=== PATIENT | male | born 1960 | race Caucasian/White ===

== ENCOUNTER 2022-05-19 20:51 | Inpatient (IN) | payer OTHER ==
[2022-05-19] MEDS ORDERED: ALBUTEROL SO4 2.5/IPRATROPIUM 0.5 INH SOL 3 ML VIAL.NEB. NEB ONE (21:06)
[2022-05-19] MEDS ORDERED: DEXAMETHASONE SOD PHOSPHATE 10 MG/1 ML VIAL IVPUSH ONE (21:06)
[2022-05-19] MEDS ORDERED: LACTATED RINGERS SOLUTION 1000 ML INFUS.BAG IV ONE (21:08)
[2022-05-19] MEDS ORDERED: methylPREDNISolone NA SUCC 125 MG/2 ML VIAL ONE (21:11)
[2022-05-19] MEDS ORDERED: methylPREDNISolone NA SUCC 125 MG/2 ML VIAL IVPUSH ONE (21:25)
[2022-05-19] MEDS ORDERED: VANCOMYCIN 1 GM in D5W (PRE-DOCKED) 1,000 MG/250 ML IVPB ONE (21:38)
[2022-05-19] MEDS ORDERED: ACETAMINOPHEN 1000 MG/100 ML BAG IVPB ONE (21:38)
[2022-05-19] MEDS ORDERED: PIPERACILLIN/TAZOB 4.5 GM 4.5 GM in DEXTROSE 5%-WATER 100 ML IVPB ONE (21:40)
[2022-05-19 21:54] LABS: HEMATOCRIT 35.6 % (35.4-49); HEMOGLOBIN 11.2 GM/dL (11.7-16.9); INR 0.93 (0.83-1.09); MCH 30.9 pg (25.7-33.7); MCHC 31.4 g/dl (32.0-35.9); MEAN CELL VOLUME 98.5 fl (80-96); MEAN PLT VOLUME 9.7 fl (7.5-11.1); PLATELET COUNT 142 10^3/uL (134-434); PROTHROMBIN TIME (PATIENT) 10.8 SEC (9.7-13.0); RBC 3.61 M/mm3 (4.00-5.60); RDW 19.6 % (11.9-15.9)
[2022-05-19] MEDS ORDERED: ACETAMINOPHEN INJECTION 100 ML IVPB ONE (22:01)
[2022-05-19] MEDS ORDERED: VANCOMYCIN/WATER FOR INJ (PEG) 1,000 MG/200 ML BAG IVPB ONE (22:02)
[2022-05-19] MEDS ORDERED: PIPERACILLIN/TAZOB 4.5 GM 4.5 GM/100 ML BAG IVPB ONE (22:02)
[2022-05-19 22:06] LABS: CALCIUM 9.2 mg/dL (8.5-10.1)
[2022-05-19 22:07] LABS: ALBUMIN 2.8 g/dl (3.4-5.0)
[2022-05-19 22:10] LABS: CREATININE 1.1 mg/dL (0.55-1.3); PHOSPHOROUS 3.4 mg/dL (2.5-4.9)
[2022-05-19 22:11] LABS: BILIRUBIN,TOTAL 0.5 mg/dL (0.2-1); TOT PROT 6.4 g/dl (6.4-8.2)
[2022-05-19 22:20] LABS: ARTERIAL BLD GAS O2 SATURATION 95.5 % (95-98); ARTERIAL BLOOD GAS BASE EXCESS -0.1 mmol/L (-2-2); ARTERIAL BLOOD GAS PO2 90.3 mmHg (80-100); ARTERIAL BLOOD GAS pH 7.263 (7.350-7.450)
[2022-05-19 22:23] LABS: ALLENS TEST POSITIVE
[2022-05-19 22:24] LABS: VENT MODE S/T; VENT RATE 20
[2022-05-19 22:25] LABS: ANISOCYTOSIS 2+; MACROCYTOSIS 0; OVALOCYTE 1+
[2022-05-19 23:11] LABS: ACTIVATED PTT 16.6 SECONDS (25.2-36.5)
[2022-05-19 23:34] LABS: CALCIUM 7.9 mg/dL (8.5-10.1); MAGNESIUM 1.3 mg/dL (1.8-2.4)
[2022-05-19 23:35] LABS: BLOOD UREA NITROGEN 37.9 mg/dL (7-18)
[2022-05-19 23:38] LABS: CREATININE 1.4 mg/dL (0.55-1.3)
[2022-05-20] MEDS ORDERED: MAGNESIUM SULF 50% (8.12 MEQ/2 ML-1 GM VIAL) IVPB ONE ×2 (01:38→02:13)
[2022-05-20 01:52] LABS: ARTERIAL BLD GAS O2 SATURATION 99.1 % (95-98); ARTERIAL BLOOD GAS BASE EXCESS -0.6 mmol/L (-2-2); ARTERIAL BLOOD GAS PO2 192.9 mmHg (80-100)
[2022-05-20] MEDS ORDERED: MAGNESIUM SULFATE IN WATER 2 GM/50 ML IVPB IVPB ONE (02:07)
[2022-05-20] MEDS ORDERED: LACTATED RINGERS SOLUTION 1000 ML INFUS.BAG IV ONE ×2 (02:21→10:43)
[2022-05-20] MEDS ORDERED: NOREPINEPHRINE BITARTRATE 4 MG/4 ML ML IV ONE ×2 (03:06→03:15)
[2022-05-20] MEDS ORDERED: NOREPINEPHRINE 0.9 % NACL 8 MG/250 ML BAG IVPB SCH (03:15)
[2022-05-20] MEDS: NOREPINEPHRINE BITARTRATE 16,000 MCG in SODIUM CHLORIDE 484 ML IV SCH ×2 (03:26→13:54)
[2022-05-20 05:11] LABS: EPI CELLS 8 /uL (0-25.1); HYALINE CASTS 4 /uL (0-3.1); URINE APPEARANCE Turbid; URINE BACTERIA 138 /uL (0-1359); URINE BILIRUBIN 2+ (NEGATIVE); URINE COLOR Red; URINE GLUCOSE (UA) Negative (NEGATIVE); URINE KETONE Negative (NEGATIVE); URINE LEUK ESTERASE Moderate (NEGATIVE); URINE NITRITE Negative (NEGATIVE); URINE PROTEIN 300 (NEGATIVE); URINE UROBILINOGEN 0.2 mg/dL (0.2-1.0); URINE WBC 1054 /uL (0-25.8)
[2022-05-20] MEDS ORDERED: ALBUTEROL SO4 0.083% IH SOL 2.5 MG/3 ML VIAL.NEB. NEB PRN (05:31)
[2022-05-20] MEDS: DEXMEDETOMIDINE PREMIX 400 MCG/100 ML BAG IVPB SCH (06:32)
[2022-05-20] MEDS: VASOPRESSIN 40 UNITS/100 ML BAG IV SCH ×2 (06:32→13:55)
[2022-05-20 08:57] LABS: URINE RBC 28254.9 /uL (0-23.9); YEAST NO SEEN (NEGATIVE)
[2022-05-20] MEDS: methylPREDNISolone NA SUCC 125 MG/2 ML VIAL IVPB SCH ×3 (09:05→21:16)
[2022-05-20] MEDS: NYSTATIN POWDER 100,000 UNITS/GM - 15 GM TOPICAL POWDER TP SCH (09:47)
[2022-05-20] MEDS ORDERED: PIPERACILLIN/TAZOB 3.375 GM 3.375 GM in DEXTROSE 5%-WATER - 50 ML IVPB SCH (10:00)
[2022-05-20] MEDS ORDERED: LINEZOLID 600 MG PREMIX BAG 600 MG/300 ML BAG IVPB SCH (10:00)
[2022-05-20 11:00] LABS: HEMATOCRIT 18.3 % (35.4-49); MCH 29.1 pg (25.7-33.7); MCHC 28.6 g/dl (32.0-35.9); MEAN CELL VOLUME 101.8 fl (80-96); MEAN PLT VOLUME 10.4 fl (7.5-11.1); PLATELET COUNT 89 10^3/uL (134-434); RDW 19.1 % (11.9-15.9)
[2022-05-20 11:07] LABS: HEMOGLOBIN 5.2 GM/dL (11.7-16.9); WHITE BLOOD COUNT 63.9 K/mm3 (4.0-10.0)
[2022-05-20] MEDS ORDERED: MIDAZOLAM HCL 2 MG/2 ML SINGLE DOSE VIAL IVPUSH ONE (11:20)
[2022-05-20 11:28] LABS: CALCIUM 7.8 mg/dL (8.5-10.1); MAGNESIUM 2.2 mg/dL (1.8-2.4)
[2022-05-20 11:30] LABS: PHOSPHOROUS 5.7 mg/dL (2.5-4.9)
[2022-05-20 11:32] LABS: LACTIC ACID 3.3 mmol/L (0.4-2.0)
[2022-05-20 12:43] LABS: HEMATOCRIT 16.9 % (35.4-49); MCH 28.7 pg (25.7-33.7); MCHC 28.5 g/dl (32.0-35.9); MEAN CELL VOLUME 100.7 fl (80-96); MEAN PLT VOLUME 10.6 fl (7.5-11.1); PLATELET COUNT 84 10^3/uL (134-434); RBC 1.67 M/mm3 (4.00-5.60); RDW 19.3 % (11.9-15.9)
[2022-05-20 12:49] LABS: HEMOGLOBIN 4.8 GM/dL (11.7-16.9); WHITE BLOOD COUNT 62.1 K/mm3 (4.0-10.0)
[2022-05-20 12:59] LABS: CHLORIDE 108 mmol/L (98-107); SODIUM 141 mmol/L (136-145)
[2022-05-20 13:00] LABS: CALCIUM 7.7 mg/dL (8.5-10.1)
[2022-05-20 13:01] LABS: CO2 30 mmol/L (21-32); GLUCOSE,RANDOM 102 mg/dL (74-106); MAGNESIUM 2.2 mg/dL (1.8-2.4)
[2022-05-20 13:04] LABS: CREATININE 1.9 mg/dL (0.55-1.3); PHOSPHOROUS 6.8 mg/dL (2.5-4.9); SGOT/AST 561 U/L (15-37); SGPT/ALT 593 U/L (13-61)
[2022-05-20 13:05] LABS: BILIRUBIN,TOTAL 0.4 mg/dL (0.2-1)
[2022-05-20 13:07] LABS: ALK PHOS 26 U/L (45-117)
[2022-05-20 13:08] LABS: ALBUMIN 1.8 g/dl (3.4-5.0); ANION GAP 3 MMOL/L (8-16)
[2022-05-20] MEDS ORDERED: INSULIN REGULAR HUMAN 100 UNITS/ML *VIAL IVPUSH ONE ×2 (13:12→21:38)
[2022-05-20] MEDS ORDERED: DEXTROSE 50%-WATER - 25 GM/50 ML VIAL IVPUSH ONE ×2 (13:12→21:38)
[2022-05-20] MEDS ORDERED: CALCIUM GLUCONATE 10% - 1,000 MG/10 ML VIAL IVPUSH ONE (13:14)
[2022-05-20 13:15] LABS: ANISOCYTOSIS 2+; MACROCYTOSIS 1+; OVALOCYTE 1+
[2022-05-20] MEDS ORDERED: CALCIUM GLUCONATE 10% - 1,000 MG/10 ML VIAL ONE (13:29)
[2022-05-20] MEDS ORDERED: DEXTROSE 50%-WATER 25 GM/50 ML DISP.SYRIN ONE (13:30)
[2022-05-20 13:53] LABS: LACTIC ACID 2.5 mmol/L (0.4-2.0)
[2022-05-20] MEDS: ALBUTEROL SO4 2.5/IPRATROPIUM 0.5 INH SOL 3 ML VIAL.NEB. NEB SCH ×4 (14:06→23:35)
[2022-05-20] MEDS: ALBUTEROL SO4 0.083% IH SOL 2.5 MG/3 ML VIAL.NEB. NEB SCH ×2 (14:06→14:07)
[2022-05-20] MEDS: PANTOPRAZOLE SODIUM 40 MG VIAL IVPUSH SCH (14:54)
[2022-05-20] MEDS ORDERED: FENTANYL CITRATE/PF 50 MCG/ML VIAL IVPUSH ONE ×3 (16:30→21:39)
[2022-05-20] MEDS ORDERED: FENTANYL CITRATE/PF 50 MCG/ML VIAL ONE ×2 (16:37→18:21)
[2022-05-20] MEDS: PIPERACILLIN/TAZOB 3.375 GM 3.375 GM in DEXTROSE 5%-WATER - 50 ML IVPB SCH (19:02)
[2022-05-20 19:41] LABS: HEMATOCRIT 27.9 % (35.4-49); HEMOGLOBIN 8.4 GM/dL (11.7-16.9); MCH 26.9 pg (25.7-33.7); MEAN CELL VOLUME 89.6 fl (80-96); MEAN PLT VOLUME 9.6 fl (7.5-11.1); PLATELET COUNT 49 10^3/uL (134-434); RBC 3.12 M/mm3 (4.00-5.60); RDW 23.8 % (11.9-15.9)
[2022-05-20 19:46] LABS: WHITE BLOOD COUNT 55.1 K/mm3 (4.0-10.0)
[2022-05-20 19:59] LABS: CHLORIDE 108 mmol/L (98-107); SODIUM 139 mmol/L (136-145)
[2022-05-20 20:02] LABS: BLOOD UREA NITROGEN 59.6 mg/dL (7-18); CO2 27 mmol/L (21-32); GLUCOSE,RANDOM 114 mg/dL (74-106)
[2022-05-20 20:05] LABS: CREATININE 1.9 mg/dL (0.55-1.3)
[2022-05-20 20:06] LABS: ANION GAP 3 MMOL/L (8-16)
[2022-05-20 20:08] LABS: ARTERIAL BLD GAS O2 SATURATION 96.7 % (95-98); ARTERIAL BLOOD GAS BASE EXCESS -6.6 mmol/L (-2-2); ARTERIAL BLOOD GAS PO2 128.9 mmHg (80-100)
[2022-05-20 20:09] LABS: ALLENS TEST POSITIVE; VENT MODE S/T; VENT RATE 12
[2022-05-20] MEDS ORDERED: ALBUTEROL SO4 2.5/IPRATROPIUM 0.5 INH SOL 3 ML VIAL.NEB. NEB SCH (20:28)
[2022-05-20] MEDS ORDERED: SODIUM BICARBONATE 8.4% 50 MEQ/50 ML DISP.SYRIN IVPUSH ONE (21:40)
[2022-05-20] MEDS ORDERED: CALCIUM GLUCONATE 10% - 1,000 MG/10 ML VIAL IVPB ONE (21:40)
[2022-05-20] MEDS ORDERED: DEXTROSE 50%-WATER 25 GM/50 ML DISP.SYRIN IVPUSH ONE (22:00)
[2022-05-20 22:12] LABS: ARTERIAL BLD GAS O2 SATURATION 98.3 % (95-98); ARTERIAL BLOOD GAS BASE EXCESS -8.9 mmol/L (-2-2); ARTERIAL BLOOD GAS PO2 156.8 mmHg (80-100)
[2022-05-20 22:14] LABS: ALLENS TEST POSITIVE; VENT RATE 12
[2022-05-20 22:15] LABS: ARTERIAL BLOOD GAS pH 7.109 (7.350-7.450)
[2022-05-21 00:35] LABS: ARTERIAL BLD GAS O2 SATURATION 94.2 % (95-98); ARTERIAL BLOOD GAS BASE EXCESS -7.5 mmol/L (-2-2); ARTERIAL BLOOD GAS PO2 94.7 mmHg (80-100)
[2022-05-21 00:37] LABS: ALLENS TEST POSITIVE
[2022-05-21 00:38] LABS: VENT RATE 16
[2022-05-21] MEDS: PIPERACILLIN/TAZOB 3.375 GM 3.375 GM in DEXTROSE 5%-WATER - 50 ML IVPB SCH ×3 (02:11→17:00)
[2022-05-21 02:24] LABS: ARTERIAL BLD GAS O2 SATURATION 92.2 % (95-98); ARTERIAL BLOOD GAS BASE EXCESS -6.1 mmol/L (-2-2)
[2022-05-21 02:36] LABS: ALLENS TEST POSITIVE; VENT RATE 16
[2022-05-21 02:37] LABS: ARTERIAL BLOOD GAS pH 7.171 (7.350-7.450)
[2022-05-21] MEDS: methylPREDNISolone NA SUCC 125 MG/2 ML VIAL IVPB SCH ×2 (03:43→09:02)
[2022-05-21] MEDS: NOREPINEPHRINE BITARTRATE 16,000 MCG in SODIUM CHLORIDE 484 ML IV SCH (03:44)
[2022-05-21] MEDS: DEXMEDETOMIDINE PREMIX 400 MCG/100 ML BAG IVPB SCH (03:44)
[2022-05-21] MEDS: VASOPRESSIN 40 UNITS/100 ML BAG IV SCH ×2 (03:45→14:49)
[2022-05-21] MEDS: ALBUTEROL SO4 2.5/IPRATROPIUM 0.5 INH SOL 3 ML VIAL.NEB. NEB SCH ×6 (04:30→23:56)
[2022-05-21] MEDS ORDERED: METOPROLOL TARTRATE 5 MG/5 ML VIAL IVPUSH PRN (06:29)
[2022-05-21 08:06] LABS: HEMATOCRIT 23.6 % (35.4-49); HEMOGLOBIN 7.5 GM/dL (11.7-16.9); MCH 27.9 pg (25.7-33.7); MCHC 31.7 g/dl (32.0-35.9); MEAN PLT VOLUME 9.7 fl (7.5-11.1); RBC 2.68 M/mm3 (4.00-5.60)
[2022-05-21 08:09] LABS: CHLORIDE 110 mmol/L (98-107); SODIUM 142 mmol/L (136-145)
[2022-05-21 08:21] LABS: PLATELET COUNT 17 10^3/uL (134-434); WHITE BLOOD COUNT 47.6 K/mm3 (4.0-10.0)
[2022-05-21 08:48] LABS: CALCIUM 8.2 mg/dL (8.5-10.1)
[2022-05-21 08:49] LABS: BLOOD UREA NITROGEN 72.4 mg/dL (7-18); CO2 25 mmol/L (21-32); GLUCOSE,RANDOM 129 mg/dL (74-106)
[2022-05-21 08:51] LABS: SGPT/ALT 810 U/L (13-61)
[2022-05-21 08:52] LABS: CREATININE 2.3 mg/dL (0.55-1.3); PHOSPHOROUS 7.1 mg/dL (2.5-4.9); SGOT/AST 442 U/L (15-37)
[2022-05-21 08:53] LABS: TOT PROT 4.7 g/dl (6.4-8.2)
[2022-05-21 08:54] LABS: ALK PHOS 31 U/L (45-117)
[2022-05-21 08:59] LABS: ANION GAP 7 MMOL/L (8-16)
[2022-05-21] MEDS: PANTOPRAZOLE SODIUM 40 MG VIAL IVPUSH SCH (09:02)
[2022-05-21] MEDS: NYSTATIN POWDER 100,000 UNITS/GM - 15 GM TOPICAL POWDER TP SCH (09:04)
[2022-05-21] MEDS ORDERED: INSULIN REGULAR HUMAN 100 UNITS/ML *VIAL IVPUSH ONE ×2 (09:06→14:23)
[2022-05-21] MEDS ORDERED: DEXTROSE 50%-WATER - 25 GM/50 ML VIAL IVPUSH ONE ×2 (09:07→14:25)
[2022-05-21] MEDS ORDERED: CALCIUM GLUCONATE 10% - 1,000 MG/10 ML VIAL IVPUSH ONE ×2 (09:07→14:25)
[2022-05-21] MEDS ORDERED: INSULIN REGULAR HUMAN 100 UNITS/ML *VIAL ONE (09:22)
[2022-05-21] MEDS ORDERED: DEXTROSE 50%-WATER 25 GM/50 ML DISP.SYRIN ONE ×2 (09:22→14:44)
[2022-05-21] MEDS ORDERED: LINEZOLID 600 MG PREMIX BAG 600 MG/300 ML BAG IVPB SCH (10:00)
[2022-05-21] MEDS ORDERED: SODIUM ZIRCONIUM CYCLOSILICATE (LOKELMA) 5 GM PACKET PO SCH (10:30)
[2022-05-21] MEDS: SODIUM CHLORIDE 0.45% 1,000 ML IV SCH (12:03)
[2022-05-21] MEDS ORDERED: ALBUTEROL SO4 0.083% IH SOL 2.5 MG/3 ML VIAL.NEB. NEB PRN (12:16)
[2022-05-21 12:41] LABS: ARTERIAL BLD GAS O2 SATURATION 91.7 % (95-98); ARTERIAL BLOOD GAS BASE EXCESS -5.7 mmol/L (-2-2); ARTERIAL BLOOD GAS PO2 82.6 mmHg (80-100)
[2022-05-21 12:45] LABS: CHLORIDE 109 mmol/L (98-107); SODIUM 142 mmol/L (136-145)
[2022-05-21 12:46] LABS: ALLENS TEST POSITIVE
[2022-05-21 12:47] LABS: ARTERIAL BLOOD GAS pH 7.119 (7.350-7.450)
[2022-05-21 12:50] LABS: CALCIUM 8.5 mg/dL (8.5-10.1)
[2022-05-21 12:51] LABS: BLOOD UREA NITROGEN 74.3 mg/dL (7-18); CO2 26 mmol/L (21-32); GLUCOSE,RANDOM 183 mg/dL (74-106)
[2022-05-21 12:54] LABS: CREATININE 2.4 mg/dL (0.55-1.3)
[2022-05-21 13:02] LABS: ANION GAP 7 MMOL/L (8-16)
[2022-05-21] MEDS: SODIUM ZIRCONIUM CYCLOSILICATE (LOKELMA) 5 GM PACKET PO SCH ×2 (13:56→22:26)
[2022-05-21 14:51] LABS: HEMATOCRIT 21.1 % (35.4-49); MCH 26.8 pg (25.7-33.7); MCHC 30.7 g/dl (32.0-35.9); MEAN CELL VOLUME 87.4 fl (80-96); MEAN PLT VOLUME 7.8 fl (7.5-11.1); PLATELET COUNT 65 10^3/uL (134-434); RBC 2.42 M/mm3 (4.00-5.60)
[2022-05-21 14:58] LABS: HEMOGLOBIN 6.5 GM/dL (11.7-16.9); WHITE BLOOD COUNT 41.6 K/mm3 (4.0-10.0)
[2022-05-21 15:00] LABS: INR 1.17 (0.83-1.09); PROTHROMBIN TIME (PATIENT) 13.6 SEC (9.7-13.0)
[2022-05-21 15:03] LABS: ACTIVATED PTT 29.3 SECONDS (25.2-36.5)
[2022-05-21] MEDS: methylPREDNISolone NA SUCC 40 MG/1 ML VIAL IVPB SCH (17:00)
[2022-05-21 22:38] LABS: HEMATOCRIT 25.3 % (35.4-49); MCH 27.4 pg (25.7-33.7); MCHC 31.6 g/dl (32.0-35.9); MEAN CELL VOLUME 86.7 fl (80-96); MEAN PLT VOLUME 8.3 fl (7.5-11.1); PLATELET COUNT 46 10^3/uL (134-434); RBC 2.91 M/mm3 (4.00-5.60); RDW 21.4 % (11.9-15.9)
[2022-05-21 22:40] LABS: WHITE BLOOD COUNT 36.7 K/mm3 (4.0-10.0)
[2022-05-21 22:47] LABS: INR 1.07 (0.83-1.09); PROTHROMBIN TIME (PATIENT) 12.4 SEC (9.7-13.0)
[2022-05-21 22:49] LABS: ACTIVATED PTT 27.7 SECONDS (25.2-36.5)
[2022-05-21 22:57] LABS: CHLORIDE 107 mmol/L (98-107); SODIUM 140 mmol/L (136-145)
[2022-05-21 22:58] LABS: CALCIUM 8.3 mg/dL (8.5-10.1)
[2022-05-21 22:59] LABS: BLOOD UREA NITROGEN 70.7 mg/dL (7-18); CO2 28 mmol/L (21-32); GLUCOSE,RANDOM 126 mg/dL (74-106)
[2022-05-21 23:02] LABS: CREATININE 2.2 mg/dL (0.55-1.3)
[2022-05-21 23:09] LABS: ANION GAP 4 MMOL/L (8-16)
[2022-05-22] MEDS ORDERED: DEXTROSE 50%-WATER 25 GM/50 ML DISP.SYRIN IVPUSH ONE (00:01)
[2022-05-22] MEDS ORDERED: CALCIUM GLUCONATE IN NACL 1 GM/50 ML BAG IVPB ONE (00:01)
[2022-05-22] MEDS ORDERED: INSULIN REGULAR HUMAN 100 UNITS/ML *VIAL IVPUSH ONE (00:01)
[2022-05-22] MEDS: PIPERACILLIN/TAZOB 3.375 GM 3.375 GM in DEXTROSE 5%-WATER - 50 ML IVPB SCH ×3 (03:44→17:00)
[2022-05-22] MEDS: methylPREDNISolone NA SUCC 40 MG/1 ML VIAL IVPB SCH ×3 (03:44→17:00)
[2022-05-22] MEDS: ALBUTEROL SO4 2.5/IPRATROPIUM 0.5 INH SOL 3 ML VIAL.NEB. NEB SCH ×5 (04:00→19:12)
[2022-05-22] MEDS: SODIUM ZIRCONIUM CYCLOSILICATE (LOKELMA) 5 GM PACKET PO SCH (07:04)
[2022-05-22 07:30] LABS: HEMATOCRIT 23.8 % (35.4-49); HEMOGLOBIN 8.1 GM/dL (11.7-16.9); MCH 29.1 pg (25.7-33.7); MCHC 34.1 g/dl (32.0-35.9); MEAN CELL VOLUME 85.3 fl (80-96); MEAN PLT VOLUME 8.8 fl (7.5-11.1); RBC 2.79 M/mm3 (4.00-5.60); RDW 20.7 % (11.9-15.9)
[2022-05-22 07:34] LABS: PLATELET COUNT 36 10^3/uL (134-434); WHITE BLOOD COUNT 32.1 K/mm3 (4.0-10.0)
[2022-05-22 07:41] LABS: INR 1.03 (0.83-1.09); PROTHROMBIN TIME (PATIENT) 11.9 SEC (9.7-13.0)
[2022-05-22 07:42] LABS: ACTIVATED PTT 27.7 SECONDS (25.2-36.5)
[2022-05-22 08:27] LABS: ALBUMIN 2.2 g/dl (3.4-5.0); CALCIUM 8.1 mg/dL (8.5-10.1)
[2022-05-22 08:30] LABS: CREATININE 2.3 mg/dL (0.55-1.3); PHOSPHOROUS 6.8 mg/dL (2.5-4.9)
[2022-05-22 08:32] LABS: BILIRUBIN,TOTAL 0.9 mg/dL (0.2-1); TOT PROT 5.2 g/dl (6.4-8.2)
[2022-05-22] MEDS: NYSTATIN POWDER 100,000 UNITS/GM - 15 GM TOPICAL POWDER TP SCH (09:00)
[2022-05-22] MEDS: PANTOPRAZOLE SODIUM 40 MG VIAL IVPUSH SCH (09:01)
[2022-05-22] MEDS ORDERED: ACETAMINOPHEN 1000 MG/100 ML BAG IVPB PRN ×2 (10:19→12:02)
[2022-05-22 11:21] LABS: ARTERIAL BLD GAS O2 SATURATION 87.7 % (95-98); ARTERIAL BLOOD GAS PO2 67.7 mmHg (80-100)
[2022-05-22 11:31] LABS: ALLENS TEST POSITIVE
[2022-05-22 11:33] LABS: ARTERIAL BLOOD GAS pH 7.175 (7.350-7.450)
[2022-05-22] MEDS: SODIUM CHLORIDE 0.45% 1,000 ML IV SCH (13:42)
[2022-05-22 14:46] LABS: HEMATOCRIT 23.6 % (35.4-49); HEMOGLOBIN 7.8 GM/dL (11.7-16.9); MCH 28.3 pg (25.7-33.7); MCHC 32.9 g/dl (32.0-35.9); MEAN CELL VOLUME 86.2 fl (80-96); MEAN PLT VOLUME 8.9 fl (7.5-11.1); RBC 2.74 M/mm3 (4.00-5.60); RDW 20.6 % (11.9-15.9)
[2022-05-22 14:50] LABS: PLATELET COUNT 36 10^3/uL (134-434); WHITE BLOOD COUNT 33.8 K/mm3 (4.0-10.0)
[2022-05-22] MEDS ORDERED: SODIUM ZIRCONIUM CYCLOSILICATE (LOKELMA) 5 GM PACKET PO SCH (22:00)
[2022-05-23] MEDS: ALBUTEROL SO4 2.5/IPRATROPIUM 0.5 INH SOL 3 ML VIAL.NEB. NEB SCH ×6 (00:08→20:30)
[2022-05-23] MEDS: methylPREDNISolone NA SUCC 40 MG/1 ML VIAL IVPB SCH ×3 (03:34→17:23)
[2022-05-23] MEDS: VASOPRESSIN 40 UNITS/100 ML BAG IV SCH ×2 (03:34→07:10)
[2022-05-23] MEDS: PIPERACILLIN/TAZOB 3.375 GM 3.375 GM in DEXTROSE 5%-WATER - 50 ML IVPB SCH ×3 (03:34→17:22)
[2022-05-23] MEDS: NOREPINEPHRINE BITARTRATE 16,000 MCG in SODIUM CHLORIDE 484 ML IV SCH ×2 (03:34→07:00)
[2022-05-23 07:13] LABS: HEMATOCRIT 24.4 % (35.4-49); MCH 28.6 pg (25.7-33.7); MCHC 32.8 g/dl (32.0-35.9); MEAN CELL VOLUME 87.3 fl (80-96); MEAN PLT VOLUME 9.5 fl (7.5-11.1); RDW 20.8 % (11.9-15.9)
[2022-05-23 07:32] LABS: BLOOD UREA NITROGEN 60.5 mg/dL (7-18); CALCIUM 8.3 mg/dL (8.5-10.1); MAGNESIUM 2.3 mg/dL (1.8-2.4)
[2022-05-23 07:33] LABS: ALBUMIN 2.3 g/dl (3.4-5.0)
[2022-05-23 07:35] LABS: CREATININE 2.1 mg/dL (0.55-1.3); PHOSPHOROUS 6.8 mg/dL (2.5-4.9)
[2022-05-23 07:36] LABS: BILIRUBIN,TOTAL 0.6 mg/dL (0.2-1); TOT PROT 5.6 g/dl (6.4-8.2)
[2022-05-23 07:58] LABS: WHITE BLOOD COUNT 33.3 K/mm3 (4.0-10.0)
[2022-05-23 07:59] LABS: PLATELET COUNT 29 10^3/uL (134-434)
[2022-05-23] MEDS: SODIUM ZIRCONIUM CYCLOSILICATE (LOKELMA) 5 GM PACKET PO SCH (10:46)
[2022-05-23] MEDS: PANTOPRAZOLE SODIUM 40 MG VIAL IVPUSH SCH (10:47)
[2022-05-23] MEDS: NYSTATIN POWDER 100,000 UNITS/GM - 15 GM TOPICAL POWDER TP SCH (10:48)
[2022-05-23] MEDS ORDERED: METOPROLOL TARTRATE 5 MG/5 ML VIAL IVPUSH ONE (14:14)
[2022-05-24] MEDS: ALBUTEROL SO4 2.5/IPRATROPIUM 0.5 INH SOL 3 ML VIAL.NEB. NEB SCH ×6 (01:11→21:01)
[2022-05-24] MEDS: PIPERACILLIN/TAZOB 3.375 GM 3.375 GM in DEXTROSE 5%-WATER - 50 ML IVPB SCH ×3 (01:27→17:48)
[2022-05-24] MEDS: methylPREDNISolone NA SUCC 40 MG/1 ML VIAL IVPB SCH ×3 (01:27→17:48)
[2022-05-24] MEDS ORDERED: ACETAMINOPHEN 1000 MG/100 ML BAG IVPB ONE (02:27)
[2022-05-24] MEDS ORDERED: ALBUTEROL SO4 0.083% IH SOL 2.5 MG/3 ML VIAL.NEB. NEB PRN (04:16)
[2022-05-24] MEDS: SODIUM ZIRCONIUM CYCLOSILICATE (LOKELMA) 5 GM PACKET PO SCH (09:55)
[2022-05-24] MEDS: PANTOPRAZOLE SODIUM 40 MG VIAL IVPUSH SCH (09:55)
[2022-05-24 11:06] LABS: HEMATOCRIT 24.7 % (35.4-49); HEMOGLOBIN 7.5 GM/dL (11.7-16.9); MCH 27.2 pg (25.7-33.7); MCHC 30.4 g/dl (32.0-35.9); MEAN CELL VOLUME 89.4 fl (80-96); MEAN PLT VOLUME 10.9 fl (7.5-11.1); RBC 2.76 M/mm3 (4.00-5.60); RDW 20.8 % (11.9-15.9)
[2022-05-24 11:11] LABS: PLATELET COUNT 36 10^3/uL (134-434)
[2022-05-24 11:19] LABS: CALCIUM 8.8 mg/dL (8.5-10.1)
[2022-05-24 11:20] LABS: ALBUMIN 2.3 g/dl (3.4-5.0); BLOOD UREA NITROGEN 74.8 mg/dL (7-18)
[2022-05-24 11:23] LABS: CREATININE 1.9 mg/dL (0.55-1.3)
[2022-05-24 11:24] LABS: BILIRUBIN,TOTAL 0.5 mg/dL (0.2-1); TOT PROT 5.6 g/dl (6.4-8.2)
[2022-05-24] MEDS: NYSTATIN POWDER 100,000 UNITS/GM - 15 GM TOPICAL POWDER TP SCH (11:38)
[2022-05-24 14:13] VITALS: BMI 22.1
[2022-05-24] MEDS ORDERED: ACETAMINOPHEN 1000 MG/100 ML BAG IVPB PRN (17:28)
[2022-05-25] MEDS: ALBUTEROL SO4 2.5/IPRATROPIUM 0.5 INH SOL 3 ML VIAL.NEB. NEB SCH ×6 (00:30→20:45)
[2022-05-25] MEDS: MELATONIN 5 MG TABLETS PO PRN ×2 (00:31→21:33)
[2022-05-25] MEDS: PIPERACILLIN/TAZOB 3.375 GM 3.375 GM in DEXTROSE 5%-WATER - 50 ML IVPB SCH ×4 (02:14→17:10)
[2022-05-25] MEDS: methylPREDNISolone NA SUCC 40 MG/1 ML VIAL IVPB SCH ×3 (02:14→17:09)
[2022-05-25] MEDS: PANTOPRAZOLE SODIUM 40 MG VIAL IVPUSH SCH (09:26)
[2022-05-25] MEDS: NYSTATIN POWDER 100,000 UNITS/GM - 15 GM TOPICAL POWDER TP SCH (09:26)
[2022-05-25 10:20] LABS: HEMATOCRIT 27.1 % (35.4-49); HEMOGLOBIN 8.7 GM/dL (11.7-16.9); MCH 28.6 pg (25.7-33.7); MCHC 32.1 g/dl (32.0-35.9); MEAN PLT VOLUME 10.7 fl (7.5-11.1); PLATELET COUNT 60 10^3/uL (134-434); RBC 3.05 M/mm3 (4.00-5.60); RDW 20.2 % (11.9-15.9); WHITE BLOOD COUNT 20.9 K/mm3 (4.0-10.0)
[2022-05-25 10:31] LABS: BLOOD UREA NITROGEN 74.2 mg/dL (7-18); CALCIUM 9.1 mg/dL (8.5-10.1)
[2022-05-25 10:32] LABS: ALBUMIN 2.4 g/dl (3.4-5.0)
[2022-05-25 10:35] LABS: CREATININE 1.9 mg/dL (0.55-1.3)
[2022-05-25 10:36] LABS: BILIRUBIN,TOTAL 0.6 mg/dL (0.2-1)
[2022-05-25 10:37] LABS: TOT PROT 5.6 g/dl (6.4-8.2)
[2022-05-25 11:31] LABS: ANISOCYTOSIS 0; HELMET CELLS 0; HOWELL-JOLLY BODIES 0; MACROCYTOSIS 0; OVALOCYTE 0; ROULEAU 0; SICKELED CELLS 0; TARGET CELLS 0; TEAR DROP CELLS 0; TOXIC GRANULATION 0
[2022-05-25] MEDS: DEXTROSE 5%-WATER - 1,000 ML IV SCH (17:09)
[2022-05-26] MEDS: ALBUTEROL SO4 2.5/IPRATROPIUM 0.5 INH SOL 3 ML VIAL.NEB. NEB SCH ×6 (00:57→20:20)
[2022-05-26] MEDS: PIPERACILLIN/TAZOB 3.375 GM 3.375 GM in DEXTROSE 5%-WATER - 50 ML IVPB SCH ×3 (02:51→17:07)
[2022-05-26] MEDS: methylPREDNISolone NA SUCC 40 MG/1 ML VIAL IVPB SCH ×3 (02:51→21:11)
[2022-05-26 08:17] LABS: HEMATOCRIT 25.3 % (35.4-49); HEMOGLOBIN 8.3 GM/dL (11.7-16.9); MCHC 32.7 g/dl (32.0-35.9); MEAN CELL VOLUME 88.6 fl (80-96); MEAN PLT VOLUME 9.8 fl (7.5-11.1); PLATELET COUNT 89 10^3/uL (134-434); RBC 2.86 M/mm3 (4.00-5.60); RDW 19.3 % (11.9-15.9); WHITE BLOOD COUNT 13.8 K/mm3 (4.0-10.0)
[2022-05-26] MEDS: NYSTATIN POWDER 100,000 UNITS/GM - 15 GM TOPICAL POWDER TP SCH (09:23)
[2022-05-26] MEDS: PANTOPRAZOLE SODIUM 40 MG VIAL IVPUSH SCH (09:23)
[2022-05-26 09:31] LABS: CALCIUM 9.1 mg/dL (8.5-10.1)
[2022-05-26 09:32] LABS: ALBUMIN 2.4 g/dl (3.4-5.0); BLOOD UREA NITROGEN 65.2 mg/dL (7-18)
[2022-05-26 09:35] LABS: CREATININE 1.6 mg/dL (0.55-1.3)
[2022-05-26 09:36] LABS: BILIRUBIN,TOTAL 0.8 mg/dL (0.2-1); TOT PROT 5.4 g/dl (6.4-8.2)
[2022-05-26] MEDS: DEXTROSE 5%-WATER - 1,000 ML IV SCH (17:07)
[2022-05-27] MEDS: ALBUTEROL SO4 2.5/IPRATROPIUM 0.5 INH SOL 3 ML VIAL.NEB. NEB SCH ×7 (00:30→23:30)
[2022-05-27] MEDS: PIPERACILLIN/TAZOB 3.375 GM 3.375 GM in DEXTROSE 5%-WATER - 50 ML IVPB SCH ×3 (01:06→17:35)
[2022-05-27 08:30] LABS: CALCIUM 9.2 mg/dL (8.5-10.1)
[2022-05-27 08:31] LABS: ALBUMIN 2.4 g/dl (3.4-5.0); BLOOD UREA NITROGEN 53.2 mg/dL (7-18)
[2022-05-27 08:34] LABS: CREATININE 1.3 mg/dL (0.55-1.3)
[2022-05-27 08:35] LABS: TOT PROT 5.6 g/dl (6.4-8.2)
[2022-05-27 08:36] LABS: BILIRUBIN,TOTAL 1.2 mg/dL (0.2-1)
[2022-05-27] MEDS: PANTOPRAZOLE SODIUM 40 MG VIAL IVPUSH SCH (10:18)
[2022-05-27] MEDS: methylPREDNISolone NA SUCC 40 MG/1 ML VIAL IVPB SCH ×2 (10:18→22:24)
[2022-05-27] MEDS: NYSTATIN POWDER 100,000 UNITS/GM - 15 GM TOPICAL POWDER TP SCH (11:11)
[2022-05-27 11:48] LABS: HEMATOCRIT 25.6 % (35.4-49); HEMOGLOBIN 8.3 GM/dL (11.7-16.9); MCH 28.3 pg (25.7-33.7); MCHC 32.3 g/dl (32.0-35.9); MEAN CELL VOLUME 87.8 fl (80-96); MEAN PLT VOLUME 9.2 fl (7.5-11.1); PLATELET COUNT 158 10^3/uL (134-434); RBC 2.92 M/mm3 (4.00-5.60); RDW 19.3 % (11.9-15.9)
[2022-05-27 12:17] LABS: CALCIUM 9.3 mg/dL (8.5-10.1)
[2022-05-27 12:18] LABS: ALBUMIN 2.5 g/dl (3.4-5.0); ANISOCYTOSIS 1+; BLOOD UREA NITROGEN 51.9 mg/dL (7-18); MACROCYTOSIS 1+
[2022-05-27 12:20] LABS: CREATININE 1.2 mg/dL (0.55-1.3)
[2022-05-27 12:21] LABS: BILIRUBIN,TOTAL 1.2 mg/dL (0.2-1); TOT PROT 5.7 g/dl (6.4-8.2)
[2022-05-27] MEDS: MELATONIN 5 MG TABLETS PO PRN (22:24)
[2022-05-28] MEDS: PIPERACILLIN/TAZOB 3.375 GM 3.375 GM in DEXTROSE 5%-WATER - 50 ML IVPB SCH ×3 (01:06→17:34)
[2022-05-28] MEDS: ALBUTEROL SO4 2.5/IPRATROPIUM 0.5 INH SOL 3 ML VIAL.NEB. NEB SCH ×5 (05:00→21:16)
[2022-05-28 07:36] LABS: HEMATOCRIT 25.5 % (35.4-49); HEMOGLOBIN 8.4 GM/dL (11.7-16.9); MCHC 33.1 g/dl (32.0-35.9); MEAN CELL VOLUME 87.8 fl (80-96); MEAN PLT VOLUME 9.7 fl (7.5-11.1); PLATELET COUNT 206 10^3/uL (134-434); RBC 2.91 M/mm3 (4.00-5.60); WHITE BLOOD COUNT 16.5 K/mm3 (4.0-10.0)
[2022-05-28 08:03] LABS: ALBUMIN 2.4 g/dl (3.4-5.0); CALCIUM 9.2 mg/dL (8.5-10.1)
[2022-05-28 08:04] LABS: BLOOD UREA NITROGEN 43.5 mg/dL (7-18)
[2022-05-28 08:06] LABS: CREATININE 1.1 mg/dL (0.55-1.3)
[2022-05-28 08:08] LABS: BILIRUBIN,TOTAL 1.1 mg/dL (0.2-1); TOT PROT 5.6 g/dl (6.4-8.2)
[2022-05-28] MEDS: methylPREDNISolone NA SUCC 40 MG/1 ML VIAL IVPB SCH (09:07)
[2022-05-28] MEDS: PANTOPRAZOLE SODIUM 40 MG VIAL IVPUSH SCH (09:07)
[2022-05-28] MEDS: NYSTATIN POWDER 100,000 UNITS/GM - 15 GM TOPICAL POWDER TP SCH (09:08)
[2022-05-28 10:15] LABS: ANISOCYTOSIS 1+; MACROCYTOSIS 0; TEAR DROP CELLS 1+
[2022-05-28] MEDS: predniSONE 20 MG TABLET (UD) PO SCH ×2 (11:53→21:23)
[2022-05-29] MEDS: ALBUTEROL SO4 2.5/IPRATROPIUM 0.5 INH SOL 3 ML VIAL.NEB. NEB SCH ×2 (00:29→03:49)
[2022-05-29] MEDS: PIPERACILLIN/TAZOB 3.375 GM 3.375 GM in DEXTROSE 5%-WATER - 50 ML IVPB SCH ×2 (02:58→10:16)
[2022-05-29] MEDS: PANTOPRAZOLE SODIUM 40 MG VIAL IVPUSH SCH (10:16)
[2022-05-29] MEDS: predniSONE 20 MG TABLET (UD) PO SCH ×2 (10:17→22:02)
[2022-05-29] MEDS: AMINO ACIDS/PROTEIN HYDROLYS 30 ML LIQUID.PKT PO SCH (10:17)
[2022-05-29] MEDS: NYSTATIN POWDER 100,000 UNITS/GM - 15 GM TOPICAL POWDER TP SCH (10:20)
[2022-05-29 11:01] LABS: HEMATOCRIT 26.2 % (35.4-49); HEMOGLOBIN 8.7 GM/dL (11.7-16.9); MCH 29.1 pg (25.7-33.7); MCHC 33.1 g/dl (32.0-35.9); MEAN CELL VOLUME 87.8 fl (80-96); PLATELET COUNT 298 10^3/uL (134-434); RBC 2.98 M/mm3 (4.00-5.60); RDW 19.2 % (11.9-15.9); WHITE BLOOD COUNT 18.7 K/mm3 (4.0-10.0)
[2022-05-29 11:28] LABS: CALCIUM 8.8 mg/dL (8.5-10.1)
[2022-05-29 11:29] LABS: ALBUMIN 2.5 g/dl (3.4-5.0)
[2022-05-29 11:31] LABS: CREATININE 1.1 mg/dL (0.55-1.3)
[2022-05-29 11:33] LABS: BILIRUBIN,TOTAL 0.9 mg/dL (0.2-1); TOT PROT 6.1 g/dl (6.4-8.2)
[2022-05-29 11:34] LABS: BLOOD UREA NITROGEN 42.5 mg/dL (7-18)
[2022-05-29] MEDS: ALPRAZolam 0.25 MG TABLET PO SCH ×2 (11:40→22:02)
[2022-05-29 11:42] LABS: ANISOCYTOSIS 2+; MACROCYTOSIS 0
[2022-05-30 08:21] LABS: HEMATOCRIT 30.4 % (35.4-49); HEMOGLOBIN 9.9 GM/dL (11.7-16.9); MCHC 32.5 g/dl (32.0-35.9); MEAN CELL VOLUME 89.1 fl (80-96); MEAN PLT VOLUME 10.1 fl (7.5-11.1); PLATELET COUNT 366 10^3/uL (134-434); RBC 3.42 M/mm3 (4.00-5.60); RDW 18.9 % (11.9-15.9); WHITE BLOOD COUNT 21.3 K/mm3 (4.0-10.0)
[2022-05-30 09:16] LABS: ANISOCYTOSIS 0; HELMET CELLS 0; HOWELL-JOLLY BODIES 0; MACROCYTOSIS 0; OVALOCYTE 0; ROULEAU 0; SICKELED CELLS 0; TARGET CELLS 0; TEAR DROP CELLS 0; TOXIC GRANULATION 0
[2022-05-30] MEDS: PANTOPRAZOLE 40 MG TABLET PO SCH (10:46)
[2022-05-30] MEDS: ALPRAZolam 0.25 MG TABLET PO SCH ×2 (10:46→22:25)
[2022-05-30] MEDS: predniSONE 20 MG TABLET (UD) PO SCH ×2 (10:48→22:25)
[2022-05-30] MEDS: NYSTATIN POWDER 100,000 UNITS/GM - 15 GM TOPICAL POWDER TP SCH (10:48)
[2022-05-30] MEDS: AMINO ACIDS/PROTEIN HYDROLYS 30 ML LIQUID.PKT PO SCH ×3 (12:53→18:23)
[2022-05-30] MEDS: CEFTRIAXONE 1 GM in DEXTROSE 5%-WATER - 50 ML IVPB SCH (16:08)
[2022-05-30] MEDS ORDERED: AMINO ACIDS/PROTEIN HYDROLYS 30 ML LIQUID.PKT PO SCH (17:30)
[2022-05-31] MEDS: AMINO ACIDS/PROTEIN HYDROLYS 30 ML LIQUID.PKT PO SCH ×2 (08:29→16:57)
[2022-05-31] MEDS: CEFTRIAXONE 1 GM in DEXTROSE 5%-WATER - 50 ML IVPB SCH (09:01)
[2022-05-31] MEDS: PANTOPRAZOLE 40 MG TABLET PO SCH (09:02)
[2022-05-31] MEDS: predniSONE 20 MG TABLET (UD) PO SCH ×2 (09:03→23:28)
[2022-05-31] MEDS: ALPRAZolam 0.25 MG TABLET PO SCH ×3 (09:03→23:28)
[2022-05-31 10:22] LABS: HEMATOCRIT 33.1 % (35.4-49); HEMOGLOBIN 10.5 GM/dL (11.7-16.9); MCH 28.3 pg (25.7-33.7); MCHC 31.7 g/dl (32.0-35.9); MEAN CELL VOLUME 89.2 fl (80-96); MEAN PLT VOLUME 9.8 fl (7.5-11.1); PLATELET COUNT 485 10^3/uL (134-434); RBC 3.72 M/mm3 (4.00-5.60); RDW 19.1 % (11.9-15.9); WHITE BLOOD COUNT 22.2 K/mm3 (4.0-10.0)
[2022-05-31] MEDS: ALBUTEROL SO4 2.5/IPRATROPIUM 0.5 INH SOL 3 ML VIAL.NEB. NEB SCH ×3 (11:10→20:45)
[2022-05-31 11:18] LABS: ANISOCYTOSIS 0; MACROCYTOSIS 0
[2022-05-31] MEDS: TAMSULOSIN HCL 0.4 MG CAP PO SCH (11:18)
[2022-05-31] MEDS: FINASTERIDE 5 MG TABLET (FP) PO SCH (11:18)
[2022-05-31] MEDS: NYSTATIN POWDER 100,000 UNITS/GM - 15 GM TOPICAL POWDER TP SCH (11:19)
[2022-05-31 16:55] LABS: EPI CELLS 16 /uL (0-25.1); HYALINE CASTS 21 /uL (0-3.1); URINE APPEARANCE TURBID; URINE BACTERIA 234 /uL (0-1359); URINE BILIRUBIN NEGATIVE (NEGATIVE); URINE COLOR YELLOW; URINE GLUCOSE (UA) NEGATIVE (NEGATIVE); URINE KETONE NEGATIVE (NEGATIVE); URINE LEUK ESTERASE 3+ (NEGATIVE); URINE NITRITE NEGATIVE (NEGATIVE); URINE PROTEIN 2+ (NEGATIVE); URINE UROBILINOGEN 0.2 mg/dL (0.2-1.0); URINE WBC 7894 /uL (0-25.8)
[2022-05-31 18:09] LABS: URINE RBC 908.9 /uL (0-23.9); YEAST MODERATE (NEGATIVE)
[2022-06-01] MEDS: ALBUTEROL SO4 2.5/IPRATROPIUM 0.5 INH SOL 3 ML VIAL.NEB. NEB SCH ×4 (07:25→21:04)
[2022-06-01] MEDS: TAMSULOSIN HCL 0.4 MG CAP PO SCH (08:11)
[2022-06-01] MEDS: AMINO ACIDS/PROTEIN HYDROLYS 30 ML LIQUID.PKT PO SCH ×2 (08:11→17:18)
[2022-06-01 08:22] LABS: CHLORIDE 103 mmol/L (98-107); SODIUM 142 mmol/L (136-145)
[2022-06-01 08:30] LABS: ALBUMIN 2.8 g/dl (3.4-5.0); BLOOD UREA NITROGEN 61.8 mg/dL (7-18); CO2 35 mmol/L (21-32); GLUCOSE,RANDOM 113 mg/dL (74-106); SGOT/AST 22 U/L (15-37); SGPT/ALT 73 U/L (13-61)
[2022-06-01 08:31] LABS: BILIRUBIN,TOTAL 0.6 mg/dL (0.2-1)
[2022-06-01 08:32] LABS: CALCIUM 9.3 mg/dL (8.5-10.1); TOT PROT 6.9 g/dl (6.4-8.2)
[2022-06-01 08:33] LABS: ALK PHOS 67 U/L (45-117); CREATININE 1.4 mg/dL (0.55-1.3)
[2022-06-01 08:43] LABS: HEMATOCRIT 31.1 % (35.4-49); HEMOGLOBIN 9.9 GM/dL (11.7-16.9); MCH 28.7 pg (25.7-33.7); MCHC 31.7 g/dl (32.0-35.9); MEAN CELL VOLUME 90.5 fl (80-96); MEAN PLT VOLUME 9.7 fl (7.5-11.1); PLATELET COUNT 467 10^3/uL (134-434); RBC 3.44 M/mm3 (4.00-5.60); RDW 18.9 % (11.9-15.9)
[2022-06-01 08:57] LABS: ANION GAP 5 MMOL/L (8-16)
[2022-06-01] MEDS: ALPRAZolam 0.25 MG TABLET PO SCH ×2 (09:23→22:32)
[2022-06-01] MEDS: PANTOPRAZOLE 40 MG TABLET PO SCH (09:23)
[2022-06-01] MEDS: FINASTERIDE 5 MG TABLET (FP) PO SCH (09:24)
[2022-06-01] MEDS: CEFTRIAXONE 1 GM in DEXTROSE 5%-WATER - 50 ML IVPB SCH (09:24)
[2022-06-01] MEDS: predniSONE 20 MG TABLET (UD) PO SCH ×2 (09:24→22:32)
[2022-06-01] MEDS: NYSTATIN POWDER 100,000 UNITS/GM - 15 GM TOPICAL POWDER TP SCH (09:24)
[2022-06-01 11:09] LABS: ANISOCYTOSIS 0; MACROCYTOSIS 0
[2022-06-01 13:55] LABS: CHLORIDE 101 mmol/L (98-107); SODIUM 137 mmol/L (136-145)
[2022-06-01 13:56] LABS: CALCIUM 9.4 mg/dL (8.5-10.1)
[2022-06-01 13:57] LABS: CO2 34 mmol/L (21-32); GLUCOSE,RANDOM 130 mg/dL (74-106)
[2022-06-01 14:00] LABS: CREATININE 1.3 mg/dL (0.55-1.3)
[2022-06-01 14:11] LABS: ANION GAP 3 MMOL/L (8-16)
[2022-06-01] MEDS ORDERED: SODIUM ZIRCONIUM CYCLOSILICATE (LOKELMA) 5 GM PACKET PO ONE (15:15)
[2022-06-02] MEDS: ALBUTEROL SO4 2.5/IPRATROPIUM 0.5 INH SOL 3 ML VIAL.NEB. NEB SCH ×4 (07:15→20:05)
[2022-06-02] MEDS: TAMSULOSIN HCL 0.4 MG CAP PO SCH (07:43)
[2022-06-02] MEDS: AMINO ACIDS/PROTEIN HYDROLYS 30 ML LIQUID.PKT PO SCH ×2 (07:43→16:57)
[2022-06-02 08:16] LABS: BASO % 0.1 % (0-2.0); EOS % 0.5 % (0-4.5); HEMATOCRIT 28.9 % (35.4-49); HEMOGLOBIN 9.2 GM/dL (11.7-16.9); LYMPH % 1.6 % (8-40); MCH 28.7 pg (25.7-33.7); MCHC 31.8 g/dl (32.0-35.9); MEAN CELL VOLUME 90.3 fl (80-96); MEAN PLT VOLUME 8.9 fl (7.5-11.1); MONO % 8.1 % (3.8-10.2); NEUT % 89.7 % (42.8-82.8); PLATELET COUNT 425 10^3/uL (134-434); RDW 19.2 % (11.9-15.9); WHITE BLOOD COUNT 19.1 K/mm3 (4.0-10.0)
[2022-06-02 08:46] LABS: ALBUMIN 2.6 g/dl (3.4-5.0); CALCIUM 9.6 mg/dL (8.5-10.1)
[2022-06-02 08:47] LABS: BLOOD UREA NITROGEN 65.5 mg/dL (7-18)
[2022-06-02 08:54] LABS: CREATININE 1.3 mg/dL (0.55-1.3)
[2022-06-02 08:56] LABS: BILIRUBIN,TOTAL 0.4 mg/dL (0.2-1); TOT PROT 6.2 g/dl (6.4-8.2)
[2022-06-02] MEDS: FINASTERIDE 5 MG TABLET (FP) PO SCH (10:16)
[2022-06-02] MEDS: PANTOPRAZOLE 40 MG TABLET PO SCH (10:16)
[2022-06-02] MEDS: CEFTRIAXONE 1 GM in DEXTROSE 5%-WATER - 50 ML IVPB SCH (10:17)
[2022-06-02] MEDS: predniSONE 10 MG TABLET (UD) PO SCH ×2 (10:17→21:13)
[2022-06-02] MEDS: SODIUM ZIRCONIUM CYCLOSILICATE (LOKELMA) 5 GM PACKET PO SCH (10:17)
[2022-06-02] MEDS: NYSTATIN POWDER 100,000 UNITS/GM - 15 GM TOPICAL POWDER TP SCH (10:18)
[2022-06-02] MEDS ORDERED: SODIUM CHLORIDE 500 ML IV STA (11:21)
[2022-06-02 15:53] VITALS: RESP 20
[2022-06-02] MEDS: ALPRAZolam 0.25 MG TABLET PO SCH (21:13)
[2022-06-03] MEDS: ALBUTEROL SO4 2.5/IPRATROPIUM 0.5 INH SOL 3 ML VIAL.NEB. NEB SCH ×4 (07:45→20:33)
[2022-06-03] MEDS: CEFTRIAXONE 1 GM in DEXTROSE 5%-WATER - 50 ML IVPB SCH (10:24)
[2022-06-03] MEDS: ALPRAZolam 0.25 MG TABLET PO SCH ×2 (10:24→22:20)
[2022-06-03] MEDS: SODIUM ZIRCONIUM CYCLOSILICATE (LOKELMA) 5 GM PACKET PO SCH (10:25)
[2022-06-03] MEDS: TAMSULOSIN HCL 0.4 MG CAP PO SCH (10:25)
[2022-06-03] MEDS: FINASTERIDE 5 MG TABLET (FP) PO SCH (10:25)
[2022-06-03] MEDS: AMINO ACIDS/PROTEIN HYDROLYS 30 ML LIQUID.PKT PO SCH ×2 (10:25→17:31)
[2022-06-03] MEDS: PANTOPRAZOLE 40 MG TABLET PO SCH (10:25)
[2022-06-03] MEDS: predniSONE 10 MG TABLET (UD) PO SCH ×2 (10:25→22:20)
[2022-06-03] MEDS: NYSTATIN POWDER 100,000 UNITS/GM - 15 GM TOPICAL POWDER TP SCH (10:26)
[2022-06-03 11:41] LABS: HEMATOCRIT 28.8 % (35.4-49); HEMOGLOBIN 9.1 GM/dL (11.7-16.9); MCHC 31.5 g/dl (32.0-35.9); MEAN CELL VOLUME 92.1 fl (80-96); MEAN PLT VOLUME 9.8 fl (7.5-11.1); PLATELET COUNT 397 10^3/uL (134-434); RBC 3.13 M/mm3 (4.00-5.60); RDW 19.5 % (11.9-15.9); WHITE BLOOD COUNT 17.5 K/mm3 (4.0-10.0)
[2022-06-03 12:00] LABS: CALCIUM 9.2 mg/dL (8.5-10.1)
[2022-06-03 12:01] LABS: ALBUMIN 2.5 g/dl (3.4-5.0); BLOOD UREA NITROGEN 61.7 mg/dL (7-18)
[2022-06-03 12:04] LABS: CREATININE 1.3 mg/dL (0.55-1.3)
[2022-06-03 12:05] LABS: BILIRUBIN,TOTAL 0.4 mg/dL (0.2-1)
[2022-06-03 12:08] LABS: ANISOCYTOSIS 1+; MACROCYTOSIS 0
[2022-06-04] MEDS: ALBUTEROL SO4 2.5/IPRATROPIUM 0.5 INH SOL 3 ML VIAL.NEB. NEB SCH ×3 (07:30→15:00)
[2022-06-04] MEDS: predniSONE 10 MG TABLET (UD) PO SCH (09:25)
[2022-06-04] MEDS: TAMSULOSIN HCL 0.4 MG CAP PO SCH (09:25)
[2022-06-04] MEDS: AMINO ACIDS/PROTEIN HYDROLYS 30 ML LIQUID.PKT PO SCH (09:25)
[2022-06-04] MEDS: PANTOPRAZOLE 40 MG TABLET PO SCH (09:25)
[2022-06-04] MEDS: FINASTERIDE 5 MG TABLET (FP) PO SCH (09:26)
[2022-06-04] MEDS: SODIUM ZIRCONIUM CYCLOSILICATE (LOKELMA) 5 GM PACKET PO SCH (09:26)
[2022-06-04] MEDS: CEFTRIAXONE 1 GM in DEXTROSE 5%-WATER - 50 ML IVPB SCH (09:26)
[2022-06-04] MEDS: ALPRAZolam 0.25 MG TABLET PO SCH (09:26)
[2022-06-04] MEDS: NYSTATIN POWDER 100,000 UNITS/GM - 15 GM TOPICAL POWDER TP SCH (09:27)
[2022-06-04 14:48] VITALS: BP 137/75; PULSE 79; TEMP 98.6
== END 2022-06-04 16:10 | DRG 871 ==
LOC: JER 20:51 → JERBED 23:27 → JICU 05-20 03:52 → J4W 05-24 02:06
PROVIDERS: ADMIT Internal Medicine Pulmonary Disease; ATTEND Family Medicine
PROC: 05HN33Z Insertion of Infusion Device into Left Internal Jugular Vein, Percutaneous Approach (ICD-10-PCS; principal; 2022-05-20)
PROC: B544ZZA Ultrasonography of Left Jugular Veins, Guidance (ICD-10-PCS; 2022-05-20)
PROC: 30233N1 Transfusion of Nonautologous Red Blood Cells into Peripheral Vein, Percutaneous Approach (ICD-10-PCS; 2022-05-20)
PROC: 30233K1 Transfusion of Nonautologous Frozen Plasma into Peripheral Vein, Percutaneous Approach (ICD-10-PCS; 2022-05-21)
DX: A41.89 Other specified sepsis (principal); J18.9 Pneumonia, unspecified organism; J96.01 Acute respiratory failure with hypoxia; J96.02 Acute respiratory failure with hypercapnia; R65.21 Severe sepsis with septic shock; R57.1 Hypovolemic shock; T83.83XA Hemorrhage due to genitourinary prosthetic devices, implants and grafts, initial encounter; N17.9 Acute kidney failure, unspecified; J44.1 Chronic obstructive pulmonary disease with (acute) exacerbation; D62 Acute posthemorrhagic anemia; E87.20 Acidosis, unspecified; I24.8 Other forms of acute ischemic heart disease; N39.0 Urinary tract infection, site not specified; I47.1 Supraventricular tachycardia; E87.0 Hyperosmolality and hypernatremia; J44.0 Chronic obstructive pulmonary disease with (acute) lower respiratory infection; I10 Essential (primary) hypertension; E78.5 Hyperlipidemia, unspecified; I48.91 Unspecified atrial fibrillation; I48.0 Paroxysmal atrial fibrillation; D64.9 Anemia, unspecified; F41.9 Anxiety disorder, unspecified; Y84.8 Other medical procedures as the cause of abnormal reaction of the patient, or of later complication, without mention of misadventure at the time of the procedure; R58 Hemorrhage, not elsewhere classified; E87.5 Hyperkalemia; D72.829 Elevated white blood cell count, unspecified; T83.022A Displacement of nephrostomy catheter, initial encounter; R41.89 Other symptoms and signs involving cognitive functions and awareness; R49.1 Aphonia; D69.6 Thrombocytopenia, unspecified; N20.0 Calculus of kidney; B96.1 Klebsiella pneumoniae [K. pneumoniae] as the cause of diseases classified elsewhere; R30.0 Dysuria; R79.89 Other specified abnormal findings of blood chemistry
CPT/HCPCS: 0241U-QW; 36251; 36415; 36430; 36600; 37244; 71045-TC-FY; 71275-TC; 74177-TC; 76775-TC; 80048; 80053; 81003; 82272; 82803; 82962; 83605; 83615; 83735; 84100; 84132; 84484; 85025; 85027; 85045; 85384; 85610; 85730; 86850; 86900; 86901; 86922; 87040; 87077; 87086; 87186; 93005; 93010; 94640; 94660; 97116-GP; 97161-GP; 99291; 99292; C9803-CS; J3490; P9017; P9034; P9058; U0003; U0005